=== PATIENT | female | born 1985 | race Caucasian/White ===

== ENCOUNTER 2019-03-29 06:57 | Emergency (ER) | payer BC ==
[~2019-03-29] VITALS: Ht 170.2 cm; Wt 70.0 kg
[~2019-03-29 06:57] MED LIST: CIPROFLOXACN500 MG PO; FERROUS SULF325 M1 PO; KEFLEX500 MG PO; LORTAB 5/3255 MG PO; METRONIDAZOL500 MG PO; ONDANSETRON ODT8 MG PO; PRENATABS OR; TUBERSOL5 MG/0.1 M ID; ZOFRAN4 MG/TAB PO
[2019-03-29 07:37] LABS: HEMATOCRIT 41.8 % (37.0-47.0); HEMOGLOBIN 13.5 g/dl (12.0-16.0); IMMATURE GRANULOCYTES 0.2 % (0.0-5.0); MEAN CELL VOLUME 94.6 fL CALC (80.0-100.0); MEAN CORPUSCULAR HGB 30.5 pG CALC (26.0-32.0); MEAN CORPUSCULAR HGB CONC 32.3 g/L CALC (32.0-36.0); NEUT# 2.73 thou/uL (2.00-7.15); RED BLOOD COUNT 4.42 mill/uL (4.20-5.60); RED CELL DISTRI WIDTH 12.1 % (11.5-15.5)
[2019-03-29 07:57] LABS: BUN 9 mg/dL (7-17); BUN/CREATININE RATIO 11 (12-20 (CALC)); CHLORIDE 103 mmol/l (95-108); CREATININE 0.8 mg/dL (0.5-1.0); GFR > 60 ML/MIN (>=60 (CALC)); GFR FOR AFR.AMER. > 60 ML/MIN (>=60 (CALC)); POTASSIUM 4.2 mmol/l (3.5-5.1); SODIUM 139 mmol/l (137-146)
[2019-03-29 08:04] LABS: ANION GAP 9 (6-22 (CALC)); CARBON DIOXIDE 31 mmol/l (22-30)
[2019-03-29] MEDS ORDERED: CYCLOBENZAPR5 MG PO (09:32)
[2019-03-29 09:35] VITALS: BP 123/89
== END 2019-03-29 10:25 | disposition home or self-care (01) | DRG 552 ==
LOC: ED 06:57
PROVIDERS: Family Medicine
DX: M54.2 Cervicalgia (principal)
CPT/HCPCS: Q9967

== ENCOUNTER 2019-10-18 | Emergency (ER) | payer BC ==
[~2019-10-18] MED LIST changes: +CYCLOBENZAPR5 MG PO
== END 2019-10-18 17:35 | disposition home or self-care (01) | DRG 605 ==
PROC: 0HQNXZZ Repair Left Foot Skin, External Approach (ICD-10-PCS; principal; 2019-10-18)
DX: S91.012A Laceration without foreign body, left ankle, initial encounter (principal); W45.8XXA Other foreign body or object entering through skin, initial encounter; Y93.I9 Activity, other involving external motion